=== PATIENT | female | born 1965 | race Caucasian/White ===

== ENCOUNTER → 2021-07-14 08:15 | Outpatient (CLI) | payer OTHER, SELFPAY ==
--- NOTE | ~2021-07-14 | US_ITS ---
EXAMINATION: US right upper quadrant DATE: 07/14/2021 08:39 INDICATION: Right upper quadrant pain TECHNIQUE: Multiple grayscale and Doppler ultrasound images of the abdomen were obtained. COMPARISON: None available FINDINGS: Bowel gas obscures visualization of the pancreas. The visualized portions of the pancreas a re unremarkable. The liver demonstrates increased echogenicity, heterogenous echotexture, and decreas ed through transmission. No surface nodularity. Normal hepatopetal flow in the main portal vein. Ston es are present in the nondistended gallbladder. There is no pericholecystic fluid or gallbladder wall thickening. The normal common bile duct measures 4 mm. There was no sonographic Hahn sign. IMPRESSION: 1. Cholelithiasis without additional findings of cholecystitis. 2. Diffuse hepatic steatosis. Reviewed, dictated and finalized at location B.
== END ==
DX: Z71.1 Person with feared health complaint in whom no diagnosis is made (principal); K76.0 Fatty (change of) liver, not elsewhere classified; K80.20 Calculus of gallbladder without cholecystitis without obstruction
CPT/HCPCS: 76705

== ENCOUNTER → 2022-11-12 07:28 | Outpatient (CLI) | payer OTHER, SELFPAY ==
--- NOTE | ~2022-11-12 | MM_ITS ---
EXAMINATION: MM screening magno BI w odalys HISTORY: Screening mammogram TECHNIQUE: Craniocaudal and mediolateral oblique 3-D tomosynthesis images were obtained and synthetic 2-D images were generated. CAD analysis was submitted and interpreted. COMPARISON: No prior mammogram is available for comparison at this institution. BREAST PARENCHYMAL COMPOSITION: The breasts are almost entirely fatty. FINDINGS: There is no evidence of suspicious mass, calcification, or architectural distortion to sugg est malignancy in either breast. There has been no suspicious interval change. IMPRESSION: 1. No mammographic evidence of malignancy. 2. Recommend routine screening mammography in one year. BI-RADS Category 1: Negative Reviewed, dictated and finalized at location B.
== END ==
PROVIDERS: PCP Internal Medicine; Visit Provider Nurse Practitioner
DX: Z12.31 Encounter for screening mammogram for malignant neoplasm of breast (principal)
CPT/HCPCS: 77063; 77067

== ENCOUNTER 2022-11-13 11:25 | Outpatient (CLI) | payer OTHER, SELFPAY ==
--- NOTE | ~2022-11-13 | US_ITS ---
EXAMINATION: US transvaginal DATE: 11/13/2022 11:50 INDICATION: Postmenopausal bleeding TECHNIQUE: Multiple transabdominal and endovaginal sonographic images of the pelvis were obtained. COMPARISON: None. FINDINGS: Uterus: 7.0 x 2.9 x 4.7 cm. Endometrial complex measures 8 mm. 6 mm collection of endometrial fluid v ersus small endometrial cyst. Right Ovary: 1.6 x 1.1 x 1.2 cm. Vascular flow is present. No adnexal mass. Left Ovary: Not clearly visualized. No adnexal mass There is no free fluid in the pelvis. IMPRESSION: Endometrial thickening, consider endometrial sampling. Left ovary not visualized. Reviewed, dictated and finalized at location K. IMPRESSION: Endometrial thickening, consider endometrial sampling. Left ovary not visualize d.
== END 2022-11-13 11:26 ==
LOC: MICIMG 11:26
PROVIDERS: PCP Nurse Practitioner; Visit Provider Nurse Practitioner
DX: N95.0 Postmenopausal bleeding (principal); R93.89 Abnormal findings on diagnostic imaging of other specified body structures
CPT/HCPCS: 76830

== ENCOUNTER 2022-12-31 01:31 | Day surgery (SDC) | payer OTHER, SELFPAY ==
[2022-12-21 16:42] VITALS: BMI 34.6
--- NOTE | 2022-12-21 16:48 | PC.NURSE ---
Report to the Outpatient Waiting Room, entrance under the green pavilion located off [facility], at time _0630_ on date _[id number]_. Planned Procedure Time: _0830_. Time changes happen often and if your time is changed the preop area will call you the afternoon before. - You and your visitor will be asked to self-screen and do not enter if you have any COVID symptoms. - A mask is optional within the hospital at this time. Patients may have clear liquids (water, carbonated beverages, clear teas, apple juice) until 3 hours prior to surgery with a maximum of 20 ounces. - No food from midnight until time of surgery Take the following medications with a SIP of water the morning of surgery: _None DO NOT STOP ANY OF YOUR OTHER PRESCRIPTION MEDICATIONS PRIOR TO SURGERY ?EXCEPT THE FOLLOWING Medications to discontinue per physician None Date to take last dose Please no make-up, nail azeri, hairspray, perfume, deodorant, or body powder the day of surgery. No jewelry (including any body piercings) or valuables the day of surgery, leave them at home. Please take a shower or bath the night before, or the morning of, surgery with an antibacterial soap. Wear comfortable, loose fitting clothing. - Jewelry must be removed prior to entering the operating room. Rings and piercings that are not removed may be cut off. - The hospital will not accept responsibility for valuables. - Please leave all valuables, including medications, at home the day of surgery. If you are going home after surgery, a licensed car driver must drive you home. - NO public transportation without another adult if you receive anesthesia. - We recommend that an adult stay with you for 24 hours following discharge. - We also recommend that you do not drive, make important decision, drink alcoholic beverages, or take any drugs that were not prescribed by your health care provider for at least 24 hours after your discharge time. Follow any additional instructions given to you from your surgeon. If you or anyone in your household have experienced Covid symptoms in the past week, please notify your surgeon or the nurse liaison at the phone number below for possible testing. Telephone instructions given to __Patient_and asked if any additional questions and then verbalized understanding. Patient advised to call surgeon office or pre surgery nurse liaison [phone] if any additional questions.
[2022-12-31] MEDS: ACETAMINOPHEN 500 MG TABLET 1000 MG PO (06:50)
[2022-12-31 06:56] VITALS: BP 146/74; PULSE 77; RESP 18; TEMP 36.3; O2SAT 99; BMI 35.1
[2022-12-31] MEDS: LACTATED RINGERS 1,000 ML 30 ML IV CONT (07:02)
--- NOTE | 2022-12-31 07:07 | P.PNAN_ITS ---
Anes - Initial Pre Proc Eval Procedure: Operation Date: 12/31/22 08:30 Proposed Procedures p Hysteroscopy Dilation and Curettage - Kay Ayon MD Date/Time: 12/31/22 07:07 Surgeon: Kay Ayon MD Pre Op Diagnosis: Post Menopausal Bleeding Patient Data Age: 57 Gender: F Height: 1.6 m Weight: 90 kg Last Vital Signs Temp 36.3 C L 12/31/22 06:56 Pulse 77 12/31/22 06:56 Resp 18 12/31/22 06:56 BP 146/74 H 12/31/22 06:56 Pulse Ox 99 12/31/22 06:56 Allergies Allergy/AdvReac Type Severity Reaction Status Date / Time No Known Allergies Allergy Verified 12/21/22 16:41 Home Medications Medication Instructions Recorded Confirmed Type triamterene 37.5 1 cap PO DAILY 12/21/22 12/31/22 History mg-hydrochlorothiazide 25 mg capsule Patient hx anesthesia problems: none Family hx anesthesia problems: none Results Review: All pre-operative results and documents have been reviewed as part of the pre- operative evaluation. [facility] Past Medical History Medical History (Updated 12/31/22 @ 07:07 by Abdoul Silverman MD) Meniere's disease Obesity Surgical History Surgical History (Updated 12/31/22 @ 07:07 by Abdoul Silverman MD) History of tubal ligation Social History Social History Smoking status: Never smoker Living arrangements: with family Spiritual care concerns: No Anes - Eval Final PreProcedure Day of Procedure 12/31/22 07:07 Patient weight: obese Heart: regular rate and rhythm Lungs: clear to auscultation Airway: Mallampati scale class II Neurological: alert and oriented Last oral intake: >/= 8 hours ASA classification: II Emergent: no Anesthetic plan: proceed Anesthesia type and monitoring: general GIVS and standard monitoring Results Review: All pre-operative results and documents have been reviewed as part of the pre-operative evaluation. Informed Consent: The patient's anesthetic plan and its attendant risks and benefits were discussed with the patient/family/POA. Questions were solicited and answers provided to the satisfaction of the patient/family/POA.
--- NOTE | 2022-12-31 07:19 | WPDHPUPDATE1 ---
History and Physical Update Update Date/Time: 12/31/22 07:19 History and Physical has been reviewed, including an updated exam of the patient. There are NO changes in the patient's condition. Risks, benefits, and alternatives have been discussed and questions answered. Patient agrees to proceed with procedure.
--- NOTE | 2022-12-31 07:20 | P.HP_ITS ---
History of Present Illness History of Present Illness Consent: Risks, benefits, and alternatives have been discussed and questions answered. Patient agrees to proceed with procedure. Chief complaint: Post Menopausal Bleeding Narrative: Alessia Pantoja is a 57 year old female with an episode of postmenopausal bleeding. Patient underwent pelvic ultrasound which revealed the uterus endometrium to only measure 3mm however there is a 6mm fluid collection. It was recommended to proceed with D&C hysteroscopy to evaluate. Risks of infection, bleeding, perforation, and possible pathology are reviewed. Patient voices understanding and agrees to proceed. Review of Systems Review of Systems: not repeated day of surgery; patient states no changes in status [facility] Past Medical History Medical History (Updated 12/31/22 @ 07:22 by aKy Ayon MD) Meniere's disease (normal spontaneous vaginal delivery) Obesity Surgical History Surgical History (Updated 12/31/22 @ 07:07 by Abdoul Silverman MD) History of tubal ligation Social History Social History Smoking status: Never smoker Living arrangements: with family Spiritual care concerns: No Meds Home Medications and Allergies Home Medications Medication Instructions Recorded Confirmed Type triamterene 37.5 1 cap PO DAILY 12/21/22 12/31/22 History mg-hydrochlorothiazide 25 mg capsule Allergies Allergy/AdvReac Type Severity Reaction Status Date / Time No Known Allergies Allergy Verified 12/21/22 16:41 Vital Signs Vital Signs - 24 hr 12/31/22 06:56 Temperature 97.3 F L Pulse Rate 77 Respiratory Rate 18 Blood Pressure 146/74 H Pulse Oximetry 99 Exam Const: General: healthy appearing, alert and obese (BMI 37.1) Orientation/consciousness: patient oriented x3 Resp: Effort & Inspection: normal respiratory effort GI: GI Palp: Yes Soft to palpation, No Tenderness to palpation present (GI) and No Palpable mass present : External Female Exam: normal external appearance Speculum Exam - Vagina: normal appearance of the vagina and normal vaginal discharge Speculum Exam - Cervix: normal appearance of the cervix Bimanual exam- vagina & uterus: uterine size normal and consistency normal Bimanual Exam- Adnexa, other: normal adnexae and No adnexal tenderness Neuro: General: patient oriented x3 Assessment and Plan Assessment and plan (1) Post-menopausal bleeding: Code(s): N95.0 - Postmenopausal bleeding Status: Acute Assessment and Plan: with an abnormal ultrasound plan is to proceed with D&C hysteroscopy
[2022-12-31 08:57] VITALS: BP 123/70; PULSE 68; RESP 12; O2SAT 95
--- NOTE | 2022-12-31 08:57 | P.OP_ITS ---
Procedure Note - Detailed Date of Procedure 12/31/22 Pre-op Diagnosis Post Menopausal Bleeding Post-op Diagnosis Same Procedure Performed D&C hysteroscopy with resection of polyp and septum Surgeon Kay Ayon MD Anesthesia MAC Findings The uterus sounds to 7cm. There was a large anterior polyp. There appears to be a small dividing thin septum. The remainder of the endometrium appears atrophic. Description of Procedure The patient is taken to the operating room and placed under anesthesia in the dorsal lithotomy position. She was prepped and draped in the usual sterile fashion. Kanaranzi speculum was placed in the vagina and the cervix grasped on the anterior lip with a tenaculum. The uterus is sounded to 7cm. The diagnostic hysteroscope was placed with the above-stated findings. The Aveeta resection device is placed through the hysteroscope and under direct visualization the polyp and the septum are removed. The hysteroscope is removed and the sharp 00 curette is used to curette the endometrium until a good uterine cry is noted in all areas. Minimal material was obtained consistent with the visual appearance. All instruments are removed. Patient is awakened from anesthesia and taken to recovery in stable condition. Sponge, needle, and instrument counts are correct per the OR staff. Estimated Blood Loss 5 Drains No Packing No Pathology Yes (Endometrial shavings and curettings) Complications No immediate complications Condition Stable Disposition PACU
[2022-12-31 09:25] VITALS: BP 124/89; PULSE 69
[2022-12-31] MEDS: KETOROLAC 30 MG/ML VIAL (*BKC) IV PUSH (09:42)
[2022-12-31 09:55] VITALS: BP 132/79; PULSE 58
== END 2022-12-31 10:10 | disposition home or self-care (01) ==
PROVIDERS: PCP Internal Medicine; Visit Provider Obstetrics & Gynecology Gynecology
PROC: 0U5B8ZZ Destruction of Endometrium, Via Natural or Artificial Opening Endoscopic (ICD-10-PCS; CPT 58563; principal; 2022-12-31 08:30)
DX: N95.0 Postmenopausal bleeding (principal); N84.0 Polyp of corpus uteri; E66.9 Obesity, unspecified; Z68.35 Body mass index [BMI] 35.0-35.9, adult
CPT/HCPCS: 58558; 88305; A9270; J1100; J1885; J2250; J2405; J2704; J3010; J7120

== ENCOUNTER 2023-05-24 08:49 | Outpatient (CLI) | payer OTHER, SELFPAY ==
--- NOTE | ~2023-05-24 | DEXA_ITS ---
Bone Density Report Name: ELISHA GREENBERG Age: 57 Sex: Female Ethnicity: White Date of : 1965 Indication: postmenopausal; screening for osteoporosis; height loss; Referring Provider: Rose, Elizabeth Study: Bone densitometry was performed. Exam Date: May 24, 2023 Accession number: [id number] Bone Density: Region BMD T-score Z-score Classification AP Spine (L1-L4) 1.054 0.1 1.3 Normal Femoral Neck (Left) 0.901 0.5 1.6 Normal Total Hip (Left) 1.066 1.0 1.8 Normal Femoral Neck (Right) 0.916 0.6 1.8 Normal Total Hip (Right) 1.069 1.0 1.9 Normal Total Hip Mean 1.068 1.0 1.9 Normal World Health Organization criteria for BMD impression classify patients as: Normal (T-score at or above -1.0), Osteopenia (T-score between -1.0 and -2.5), or Osteoporosis (T-score at or below -2.5). 10-year Fracture Risk: FRAX not reported because: All T-scores for Spine Total, Hip Total, Femoral Neck at or above -1.0 Clinical Information Provided by Patient: Patient maximum height was 63.5 Menopause Age: 48 Does not regularly consume dairy products Drinks caffeinated beverages Onset of menses at age 11 Number of children 1 Impression: The patient has normal bone mass. Discussion: BONE DENSITY IS ABOVE THE MINIMUM DESIRABLE LEVEL AT ALL SKELETAL SITES TESTED. This patient?s bone mineral density is above the minimum desirable level (T-score -1.0 or better) at all sites measured. The patient should follow a healthful lifestyle (good nutrition with adequate calcium and vitamin D, and appropriate weight-bearing exercise). Follow-Up: Consider repeating this study in 5 years or sooner if there is some new clinical indication. Reported by: WALT on 05/24/2023 9:08:00 AM. Reviewed, dictated and finalized at location ARoberto AVITIA
== END 2023-05-24 08:50 ==
LOC: MICIMG 08:50
PROVIDERS: PCP Internal Medicine; Visit Provider Nurse Practitioner
DX: Z13.820 Encounter for screening for osteoporosis (principal); Z78.0 Asymptomatic menopausal state
CPT/HCPCS: 77080